=== PATIENT | female | born 1930 | race Caucasian/White ===

== ENCOUNTER 2019-06-11 08:42 | Observation (INO) ==
--- NOTE | 2019-06-11 10:02 | Pre Anesthesia Assessment ---
Date of Service June 11, 2019 Pre Sedation Assessment Vital Signs Temp Pulse Resp BP Pulse Ox 06/11/19 09:15 36.6 C 66 16 195/84 H 97 Cardiovascular + regular rate and + regular rhythm Respiratory normal respiratory effort, lungs clear to auscultation Pre-Sedation Airway Assessment Smoking Status: Never smoker Hx Sleep Apnea: No Short, Thick Neck: No Thyromental Distance: > or= 3.5 Finger Breadths Mallampati Class: IV ASA: ASA4 NPO Status Date of Last Intake of Fluids: 06/11/19 Time of Last Intake of Fluids: 06:00 Last Oral Intake of Fluids Comment: sip with meds Date of Last Intake of Solid Food: 06/10/19 Time of Last Intake of Solid Foods: 17:30 Procedure Planning Contraindications for Sedation: none Current Medications Reviewed: Yes Notes The planned sedation has been discussed with the patient. Informed Consent was obtained. I have identified the patient, determined the appropriateness of sedation and have assessed the patient immediately prior to the procedure. All medicine(s) and interventions are by my order.
--- NOTE | 2019-06-11 10:02 | History & Physical Bridge Note ---
Date of Service June 11, 2019 History & Physical Bridge Note I have examined the patient, reviewed the History & Physical and in the interval since the performance of the History & Physical I have noted the following changes of clinical significance: no changes noted
[2019-06-11] MEDS ORDERED: LIDOCAINE HCL 1% 20 ML VIAL ONE (10:03)
[2019-06-11] MEDS ORDERED: fentaNYL citrate 100 MCG/2 ML VIAL ONE ×3 (10:03→12:44)
[2019-06-11] MEDS ORDERED: BUPIVACAINE 0.5 % 5 MG/1 ML PF 10ML VIAL ONE ×2 (10:03→10:16)
[2019-06-11] MEDS ORDERED: MIDAZOLAM HCL 5 MG/ML 1 ML VIAL ONE (10:03)
[2019-06-11] MEDS ORDERED: WATER, STERILE FOR INJ 10 ML VIAL ONE (10:04)
[2019-06-11] MEDS ORDERED: BACITRACIN INJ 50,000 UNIT VIAL ONE (10:04)
[2019-06-11] MEDS ORDERED: CEFAZOLIN 250 MG/ML 1 GM VIAL ONE (10:05)
[2019-06-11] MEDS ORDERED: MIDAZOLAM HCL 1 MG/ML 2ML VIAL ONE ×2 (11:37→12:44)
[2019-06-11] MEDS ORDERED: AMIODARONE 150MG / 100ML D5W IV ONE (12:45)
[2019-06-11] MEDS ORDERED: AMIODARONE 360MG / 200ML D5W IV ONE (13:19)
--- NOTE | 2019-06-11 14:01 | Post Anesthesia Assessment ---
Date of Service June 11, 2019 Post Sedation Assessment Vital Signs Temp Pulse Resp BP Pulse Ox 06/11/19 09:15 36.6 C 66 16 195/84 H 97 Recovery Score Activity: Moves 4 extremities Respiration: Deep Breath/Cough Circulation: +/-20% PreAnes Value Consciousness: Fully Awake Oxygen Saturation: > 92% On Room Air Discharge Sedation Level of Care: Fast Track Phase II Post Sedation Plan On clinical assessment, the patient appears to have tolerated the sedation without complications. Patient is recovering as anticipated. Patient will continue to be monitored by nursing and may be discharged when sedation discharge criteria are met per below protocol. Upon Completions of procedure up to 15 minutes continue every 5 minute vital signs and the P.A.R. score; then discharge to a Phase I or Fast Track to Phase II per the following guidelines: * Discharge Patient to appropriate Phase II area if PAR is 8 or greater or return to pre- procedure baseline. The post - procedure orders will be as directed. * If PAR score is less than 8 or not return to pre-procedure baseline then patient will follow Phase I monitoring till PAR is reached for Phase II. The Phase I may be done in procedure room or may call to secure a Phase I area. * If naloxone or flumazenil are used for reversal, hold in Phase I for continued monitoring from when last reversal dose was given for a minimum of 60 minutes or longer pending the nurse and/or physician discretion of patient condition before discharge to Phase II. Please call the Sedation Physician to re-evaluate and complete post-note for discharge to Phase II area. Do NOT discharge from procedure sedation or Phase 1 until post- sedation evaluation note is complete by procedure /sedation MD Sedation Discharge Instructions to be given to the patient at discharge to home.
[2019-06-11] MEDS ORDERED: ACETAMINOPHEN 325 MG TAB PO PRN (14:02)
--- NOTE | 2019-06-11 14:02 | Operative Report ---
Post Operative Report Pre & Post Diagnosis TBS Operation Date: 06/11/19 10:00 <No data on this case meets the specified criteria> I identified the patient and participated in the time-out.: Yes Procedure Operation Date: 06/11/19 10:00 Actual Procedures p Pacer with A/V Leads (Dual) - Naomie Mckinley DO s Venogram, Unilateral - Naomie Mckinley DO Surgeon Naomie Mckinley DO Food Inspector Dr. Iraheta Estimated Blood Loss 50 Findings Consistent with Post-Op Diagnosis Specimens none Description of Procedure see official report I attest to the content of the Intraoperative Record and any orders documented therein. Any exceptions are noted below.
[2019-06-11] MEDS ORDERED: CYANOCOBALAMIN 1000 MCG IM SCH (14:15)
[2019-06-11] MEDS ORDERED: SURGICAL BRA XX SCH (14:15)
[2019-06-11] MEDS ORDERED: MAGNESIUM HYDROXIDE SUSP 30 ML UDC PO PRN (14:15)
[2019-06-11] MEDS ORDERED: NON-FORMULARY MEDICATION (Acetaminophen (Tylenol) 650 MG) PO SCH (14:15)
--- NOTE | 2019-06-11 14:33 | XRay Report ---
XR chest 1V portable HISTORY: Status post pacemaker placement. COMPARISON: Chest 04/01/2011. FINDINGS: No pneumothorax. No pleural effusions. The heart remains mildly enlarged. Interval placemen t of a left-sided dual-chamber pacemaker. The leads appear intact. There is mild central pulmonary va scular congestion without overt edema. Old, healed left-sided rib fractures. There is a 1 cm density within the right lung base overlying the right anterior sixth rib. This may be within the rib. IMPRESSION: 1. Interval placement of left-sided dual-chamber pacemaker. No pneumothorax. 2. Mild pulmonary vascular congestion without overt edema. 3. A 9 mm nodular density within the right lung base which may be within the overlying rib. Follow-up nonemergent PA and lateral views of the chest are recommended for further evaluation. ACT 112: Negative or not required by law. Electronically signed by: Kevin Healy M.D. 06/11/2019 2:32 PM
[2019-06-11] MEDS ORDERED: bisacodyL 10 MG SUPP PR PRN (15:03)
[2019-06-11] MEDS ORDERED: 0.2 MICRON FILTER SET 1 EA IV ONE (16:08)
[2019-06-11] MEDS ORDERED: Nursing to Pharmacy Communication ONE ×2 (16:15→20:15)
[2019-06-11] MEDS: AMIODARONE / D5W 360 MG/200 ML BAG IV SCH ×2 (16:45→19:31)
[2019-06-11] MEDS ORDERED: AMIODARONE / D5W 360 MG/200 ML BAG IV SCH (20:01)
[2019-06-11] MEDS: METOCLOPRAMIDE HCL 5 MG TABLET PO SCH (20:06)
[2019-06-12 06:30] LABS: INR 1.7 (0.9-1.1)
[2019-06-12] MEDS ORDERED: LEVOTHYROXINE SODIUM 100 MCG TABLET PO SCH (06:30)
--- NOTE | 2019-06-12 08:23 | Discharge Summary ---
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 Admission Exam Per Admitting Provider aaox3, NAD NC/AT, EOMI Supple No JVD Nrl S1/S2, No murmur CTA b/l no w/r/r soft nt/nd no LE edema b/l skin intact no focal deficits Principal Diagnosis TBS s/p ppm Discharge Exam aaox3, NAD NC/AT, EOMI Supple No JVD Nrl S1/S2, No murmur CTA b/l no w/r/r soft nt/nd no LE edema b/l skin intact no focal deficits left pectoral incision intact, no hematoma mild ecchymosis ENMT Mallampati Class: IV Respiratory normal respiratory effort, lungs clear to auscultation Cardiovascular Rate/Rhythm: regular rate and regular rhythm Discharge Data Allergies Allergy/AdvReac Type Severity Reaction Status Date / Time vancomycin Allergy Intermediate RASH Verified 03/14/11 10:12 lactose Allergy Unknown Unknown Verified 03/12/11 14:18 Sulfa (Sulfonamide Allergy Unknown HIVES Verified 03/10/11 23:44 Antibiotics) Penicillins Allergy Unknown Verified 06/11/19 10:56 Procedures Performed Operation Date: 06/11/19 10:00 Actual Procedures p Pacer with A/V Leads (Dual) - Naomie Mckinley DO s Venogram, Unilateral - Naomie Mckinley DO Ordered Studies CXR: No PTX, leads in position ECG: AF Pacemaker Interrogation Today: Normal function stable lead testing Flipped back into SR last night 06/11/19 07:23 CL Cath Imgs for PACS use only Routine Hospital Course (1) Tachy-isidro syndrome: (2) PAF (paroxysmal atrial fibrillation): Total Time Total Time Spent Total Time Spent (In Minutes): 30 Total Time Includes: Examination of the Patient, Discharge Planning, Medication Reconciliation and Other Discharge Plan Discharge Items Patient Disposition: Personal Half-Way Reason For Visit: TBS Discharge Diagnosis: TBS s/p ppm Condition on Discharge: Good Activity: As commented below Activity Comment: do not lift the left elbow over the left shoulder for 1 month Lifting: No more than 10 pounds Lifting Comment: do not lift more than 10 pounds with the left arm for 2 weeks Bathing: Keep incision dry Bathing Comment: keep dressing dry & intact until wound check next week Non-emergency contact: Director Part Call non-emergency contact if: you have any medication questions Follow-up/Referrals: Debbie Wilson DO [Primary Care Provider] - Diet: Heart Healthy Addtl Attending Provider Instructions: Keep dressing on and dry until wound check next week jo ann shaw device and wound check next week as scheduled look at the device area everyday for 1 month-if you notice any concerns or swelling call Dr. Mckinley's office immediately Pending Studies at Discharge: No Stand-Alone Forms: My [employer], Smoking Cessation Skilled Items Patient informed of condition?: Yes DNR: No Discharge Level of Care: Other Communicable Disease: No Discharge Prognosis: Improving Lines: None Urinary Catheter: No Medications and DC Order Prescriptions: Continued Acetaminophen (Tylenol) 325 MG tablet 650 mg PO Q4HR PRN Qty: 0 RF: 0 Cyanocobalamin (Vitamin B-12 Inj) INJECTION 1,000 mcg IM MONTHLY Qty: 0 RF: 0 ArgiMent Oral Packet 1 pack PO BID Qty: 0 RF: 0 Bisacodyl (Dulcolax *) 10 MG suppository 1 supp [place] DAILY Qty: 0 RF: 0 Magnesium Hydroxide (Milk Of Magnesia) 30 ML suspension 30 ml PO DAILY PRN Qty: 0 RF: 0 Metoclopramide (Reglan *) 5 MG tablet 5 mg PO BID Qty: 0 RF: 0 tolterodine 2 mg Capsule,Extended Release 24hr 2 mg PO DAILY RF: 0 furosemide 40 mg Tablet 40 mg PO DAILY RF: 0 cetirizine 10 mg Tablet 5 mg PO DAILY RF: 0 amiodarone 200 mg Tablet 200 mg PO DAILY RF: 0 warfarin 2.5 mg Tablet 2.5 mg PO DAILY RF: 0 aspirin [Aspir-81] 81 mg Tablet,Delayed Release (Dr/Ec) 81 mg PO DAILY RF: 0 levothyroxine 100 mcg Tablet 100 mcg PO DAILY RF: 0 Discharge Orders: Discharge Order (Routine); Ordered 06/12/19 Ordered By: Naomie Guillermo/Other Patient Handouts: Pacemakers, Discharge Instructions for Pacemaker Implantation Admission Data Admit Date/Time: 06/11/19 13:24 Attending Provider: Naomie Mckinley Admit Provider: Naomie Mckinley Primary Care Provider: Debbie Wilson Other Interventions: Discharge Summary Assessment (RN) Last Done: 06/12/19 09:50 DC Date/Time DO NOT enter until pt leaves facility: 06/12/19 10:25
[2019-06-12] MEDS: METOCLOPRAMIDE HCL 5 MG TABLET PO SCH (08:47)
[2019-06-12] MEDS ORDERED: ASPIRIN 81 MG ECTAB PO SCH (09:00)
[2019-06-12] MEDS ORDERED: TOLTERODINE TARTRATE LA 2 MG CAPCR PO SCH (09:00)
[2019-06-12] MEDS ORDERED: CETIRIZINE HCL 10 MG TABLET PO SCH (09:00)
[2019-06-12] MEDS ORDERED: FUROSEMIDE 40 MG TAB PO SCH (09:00)
[2019-06-12] MEDS ORDERED: AMIODARONE 200 MG TAB PO SCH (09:00)
--- NOTE | 2019-06-12 15:33 | Electrocardiogram Report ---
Test Reason : Blood Pressure : / mmHG Vent. Rate : 060 BPM Atrial Rate : 060 BPM P-R Int : 206 ms QRS Dur : 074 ms QT Int : 440 ms P-R-T Axes : -14 -38 032 degrees QTc Int : 440 ms Atrial-paced rhythm Left axis deviation Low voltage QRS Nonspecific T wave abnormality Abnormal ECG When compared with ECG of 28-APR-2011 10:38, Electronic atrial pacemaker has replaced Sinus rhythm Confirmed by Lamont Hubbard ([id number]) on 06/12/2019 3:33:13 PM Referred By: Naomie Mckinley Confirmed By:Lamont Hubbard
[2019-06-12] MEDS ORDERED: WARFARIN SOD 3 MG TAB PO SCH (16:00)
--- NOTE | 2019-06-12 16:41 | Operative Report (OR) ---
DATE OF OPERATION: 06/11/2019 PREOPERATIVE DIAGNOSIS: Tachybrady syndrome. POSTOPERATIVE DIAGNOSIS: Tachybrady syndrome. PROCEDURE: Dual chamber rate responsive permanent pacemaker under fluoroscopic guidance along with peripheral venogram. SURGEON: Naomie Mckinley DO. TRANSPORTATION MANAGER: Dr. Gutierrez. ANESTHESIA: Monitored conscious sedation administered under my supervision by Abelardo Tom. Start time 10:38, end time 13:54. Total of 9 mg of Versed, 225 mcg fentanyl. IV FLUIDS: 300 mL. ANTIBIOTICS: 2 grams of Ancef. IV CONTRAST: 30 mL. COMPLICATIONS: None. CONDITION: Stable. URINE OUTPUT: Not applicable. SPECIMENS: None. FINDINGS: See below. DRAINS: None. BLOOD LOSS: 50 mL. INDICATIONS: This is an 89-year-old female with past medical history for paroxysmal atrial fibrillation diagnosed in 08/2010. She has a history of cardioversions in the past and cardioverting chemically with IV amiodarone. She was on Coumadin from 08/2010 to 11/2010. Then had recurrent AFib in 03/2011, so it was restarted, then converted with IV amiodarone. Then she had another recurrent episode of AFib in 12/2018, so Coumadin was then restarted and she was started on amiodarone in 01/2019. Her CHADS2-VASc score is 7. Additional past medical history is hypertension, chronic diastolic heart failure, carotid artery stenosis bilaterally mild, hypothyroidism, hyperlipidemia, gastroesophageal reflux disease, overactive bladder, venous insufficiency, heme positive stools in past, she is status post an EGD, chronic kidney disease stage IV, vitamin B12 deficiency. Due to her evidence of tachybrady syndrome on recurrent Zio patch monitor, she was recommended a dual chamber pacemaker. Additional meds was 200mcg of nitro and 150 mg bolus of amiodarone with an IV drip. CONSENT: Consent was obtained prior to the patient going into Electrophysiology Lab. The patient was informed of the risks, benefits and alternative procedure. Risks include but not limited to sudden cardiac ; cardiac arrhythmias; cerebrovascular accident; myocardial infarction; injury to the blood vessels, chamber of the heart, lung; bleeding and infection. The patient understood these risks and agreed with procedure as planned. Informed consent was obtained. DESCRIPTION OF THE PROCEDURE: The patient was brought into Electrophysiology Lab in a fasting state. She was connected to continuous associate professor computer science. Timeout was performed to ensure patient identity and procedure correctly. The patient was prepped and draped over the left infraclavicular space in normal surgical standard fashion. Moderate conscious sedation was given throughout the procedure for the patient's comfort level. Gilman precautions were maintained throughout the procedure. She received prophylactic antibiotics prior to incision. A 20 mL of 1% lidocaine, bupivacaine mixture were given in the left deltopectoral groove. Incision was made in left deltopectoral groove. Blunt dissection performed down to identify cephalic vein. Cephalic vein was identified and isolated using 0 silk ties. The vein was nicked with 11 blade and a guidewire was inserted without any resistance. An 8-[place] sheath was inserted over the guidewire without any resistance. The dilator was removed and a second guidewire was inserted through the 8-[place] sheath to allow for retained venous access. Then the sheath was flushed and reinserted over the dilator and then reinserted over the guidewire. The guidewire and dilator removed and the right ventricular lead was advanced into right ventricle and positioned in right ventricular apex; however, I was having difficulty getting into the apex. At one point, I got it to a little higher septal positioning. The impedance was slightly high, but it was still acceptable and the threshold was good, so we left it there and I peeled the 8-[place] sheath away and fixated the lead to the pectoralis muscle. Then a second 8-[place] sheath was inserted over the retained guidewire without any resistance. Guidewire and dilator removed and the right atrial lead was advanced into right atrium and positioned right atrial appendage under fluoroscopic guidance. There was adequate pacing and sensing thresholds and no diaphragmatic stimulation with high output pacing. The 8-[place] sheath was peeled away and lead was fixated to pectoralis muscle. We noticed that when I was placing the right atrial lead, the right ventricular lead seemed to move, although it is still capturing it. I question the stability, so we unscrewed it and we tried to reposition it; however, I was having difficulty and then it seemed like the screw mechanism had become defective, so I had to take the entire lead out of the cephalic vein. This let me then to have to do an axillary stick, so I did a peripheral venogram using 10 mL of IV contrast diluted in 10 mL of saline. I was having difficulty getting axillary access. I ended up giving 200 mcg of nitro there was a little bit of spasm I could see in the distal axillary area where I would normally stick and then performed another venogram. I still was having difficulty accessing and I think I really needed to have a more proximal access area, so I ultimately asked Dr. Gutierrez to come in and scrub. He came in and scrubbed. He was able to get axillary access and positioned the right ventricular lead a few times in the apex, but just like I had gotten high thresholds and moderately high impedances, so he ultimately found a low septal area and had acceptable impedances and thresholds. The lead was screwed in and then it secured to the pectoralis muscle using 0 silk suture. A pacemaker pocket was created using blunt dissection over the pectoralis muscle within the pectoral fascia. I did have to do a CT needle 2-0 Vicryl pursestring around the axillary site as there was some backbleeding. The pocket was flushed with copious amounts of bacitracin saline wash and inspected for hemostasis. Then, the leads were attached to the new pulse generator making sure that the pins were in appropriate position, passed set screw and set screws were all tightened. Then, the pulse generator was placed in the antibiotic pouch making sure that the leads were lying flat beneath the device. Then the device was placed in the pocket making sure that the leads were lying flat beneath the device and stay stitch using 0 silk suture was used to secure device to the pectoralis muscle. The incision was then closed in 3-layer fashion with 2-0 Vicryl interrupted suture followed by 3-0 Vicryl interrupted suture followed by 4-0 Monocryl running stitch. Of note, the patient did go into atrial fibrillation when I was in the middle of the procedure. We gave her some IV amiodarone and she still remained in AFib so a drip was started of amiodarone. EQUIPMENT: 1. Pulse generator is a Medtronic Ivone XT DR YANNA Perez [id number], serial number [id number]. 2. Right atrial lead, Medtronic 5076-52 cm, serial number [id number]. 3. Right ventricular lead, Medtronic 5076-58 cm, serial number [id number]. 4. Antibiotic Tyrx pouch is reference number [id number], lot number [id number], expiration 07/24/2021. INTRAOPERATIVE TESTIN. Right atrial lead: Fib waves were 3.5 millivolts, impedance 532 ohms, no threshold testing. The patient went into AFib. 2. Right ventricular lead: R-wave 5 millivolts, impedance 665 ohms, threshold 1 volt at 0.4 milliseconds. FINAL MEASUREMENTS THROUGH THE DEVICE: 1. Right atrial lead: Fib waves 6 millivolts, impedance 608 ohms, threshold is not obtainable because she is in AFib. 2. Right ventricular lead: R-wave 6.1 millivolts, impedance 627 ohms, threshold 0.75 volts at 0.4 milliseconds. FINAL PARAMETERS: MVP-R 60/130. Right atrial amplitude 5 volts, pulse width 0.4 milliseconds, sensitivity 0.3 millivolts. Right ventricular amplitude 3.5 volts, pulse width 0.4 milliseconds, sensitivity 1.2 millivolts. IMPRESSION: Successful implantation of a dual chamber rate responsive permanent pacemaker under fluoroscopic guidance along with peripheral venogram due to tachybrady syndrome. PLAN: Monitor the patient overnight, 12-lead ECG, chest x-ray. She is not allowed to lift left elbow or left shoulder for 1 month. She cannot lift more than 10 pounds with the left arm for 2 weeks. She is to leave the dressing on and dry until her wound check next week. We will get a chest x-ray immediately afterwards just to make sure there is no pneumothorax and she can restart her Coumadin and all her other medicines. I attest to the content of the Intraoperative Record and any orders documented therein. Any exceptions are noted below. TERRENCE
[2019-06-14] MEDS ORDERED: WARFARIN SOD 2 MG TAB PO SCH (16:00)
[2019-06-14] MEDS ORDERED: WARFARIN SOD 2.5 MG TAB PO SCH (16:00)
== END 2019-06-12 10:25 | disposition home or self-care (01) ==
LOC: 2E 08:42 → EP 08:42